=== PATIENT | female | born 1970 | race Caucasian/White ===

== ENCOUNTER 2019-01-24 20:24 | Emergency (ER) | payer MEDICAID, OTHER ==
[~2019-01-24] VITALS: Ht 165.1 cm; Wt 63.5 kg
--- NOTE | 2019-01-24 22:46 | NUR ---
BIB SELF FROM HOME WITH . TO ER BED 4. AAOX4. NO RESP DISTRESS NOTED, BREATHING EVEN AND UNLABORED. AMBULATORY/ C/O LOWER BACK PAIN EXTENDING TO R THIGH 9/10 SHARP ACHING AND TIGHTNESS. PT ALSO C/O R WRIST PAIN D/T BREAKING HER FALL. PT DENIES HITTING HER HEAD. NO VISIBLE INURY NOTED. GERONIMO SONG AT BEDSIDE. AWAITING ORDERS
[2019-01-24] MEDS ORDERED: ACETAMINOPHEN ES 500 MG TABLET ONE (23:21)
[2019-01-24] MEDS ORDERED: ACETAMINOPHEN 325 MG TABLET PO ONE (23:30)
--- NOTE | 2019-01-24 23:38 | NUR ---
PT TO RADIOLOGY ON W/C
[2019-01-25 00:29] VITALS: BP 124/79
--- NOTE | 2019-01-25 00:36 | NUR ---
Patient discharged to home in stable condition. Written and verbal after care instructions given. Patient verbalizes understanding of instruction.Pt ambulatory with a steady gait
== END 2019-01-25 00:47 | disposition home or self-care (01) ==
LOC: ER 20:31
DX: S63.592A Other specified sprain of left wrist, initial encounter (principal); S39.012A Strain of muscle, fascia and tendon of lower back, initial encounter; W01.0XXA Fall on same level from slipping, tripping and stumbling without subsequent striking against object, initial encounter; Y93.89 Activity, other specified; Y92.89 Other specified places as the place of occurrence of the external cause; Y99.8 Other external cause status
CPT/HCPCS: 72110-TC; 73110; 73552